=== PATIENT | male | born 1975 | race Caucasian/White ===

== ENCOUNTER 2016-09-26 20:58 | Emergency (ER) | payer BC, OTHER ==
[~2016-09-26] VITALS: Ht 193 cm; Wt 162.1 kg
[~2016-09-26 20:58] MED LIST: ZCRUNK
[2016-09-26 21:00] VITALS: TEMP 37.1; Ht 193 cm; Wt 162.1 kg
[2016-09-26] MEDS ORDERED: SODIUM CHLORIDE 0.9% 500ML 500 ML IV STA (21:10)
[2016-09-26] MEDS ORDERED: BENZONATATE 100MG CAP PO ONE (21:15)
[2016-09-26 21:36] LABS: HEMATOCRIT 46.5 % (42-52); MEAN CELL VOLUME 86.6 fL (80-100); MEAN CORPUSCULAR HEMOGLOBIN 29.6 pg (25-34); MEAN CORPUSCULAR HGB CONC 34.2 g/dl (32-36); MEAN PLATELET VOLUME 10.9 fL (7.4-10.4); PLATELET COUNT 198 K/uL (130-400); RED BLOOD COUNT 5.37 M/uL (4.7-6.1)
[2016-09-26 21:52] LABS: BUN/CREATININE RATIO 17.8 (10-20); CALCIUM 8.4 mg/dl (8.5-10.1)
--- NOTE | 2016-09-26 22:12 | DIAGNOSTIC IMAGING REPORT ---
CHEST 2 VIEWS ROUTINE CLINICAL HISTORY: cough COMPARISON STUDY: 08/27/2014 FINDINGS: The cardiac and mediastinal contours are normal. There is no evidence of focal pulmonary consolidation. There is no evidence of failure. No pleural effusions are visualized.[ There are minor retroxiphoid atelectatic changes. IMPRESSION: No active disease in the chest. Electronically signed by: Jovany Velásquez M.D. 09/26/2016 10:11 PM Dictated Date/Time: 09/26/2016 10:10 PM
[2016-09-26 23:03] LABS: COMPLETE YES; LYMPH ABS # 1.22 K/uL (1.2-3.4); VARIANT LYM ABS # 0.58 K/uL
[2016-09-26 23:08] LABS: INFLUENZA A PCR Neg for Influ A (NEG); INFLUENZA B PCR Neg for Influ B (NEG)
[2016-09-26] MEDS ORDERED: BENZ100C18 PO (23:14)
[2016-09-26] MEDS ORDERED: AMOX875T PO (23:14)
[2016-09-26] MEDS ORDERED: AMOXICILLIN/CLAVULANATE TAB 875 MG TAB PO ONE (23:15)
[2016-09-26 23:22] VITALS: BP 144/87; PULSE 63; O2SAT 97
--- NOTE | 2016-09-27 00:17 | EMERGENCY ROOM VISIT NOTE ---
History Report prepared by Laurent: Dana Mahajan Under the Supervision of: Dr. Jerome Kaye D.O. First contact with patient: 21:03 Chief Complaint: ILLNESS Stated Complaint: COUGH,CONGESTION,SHORT OF BREATH,FEVER History of Present Illness The patient is a 41 year old male who presents to the Emergency Room with complaints of a worsening illness that started one week ago. The patient developed a dry cough last week that has been getting gradually worse. The cough is still dry, but he now experiences back pain with the cough. He states that the cough is the worst when he is lying down at night. The patient is experiencing chest pain and shortness of breath with coughing, but denies either of those symptoms otherwise. The patient is also experiencing post-nasal drip, which started one week ago. He began experiencing a sore throat two days ago and he states that it gets better as the day goes on. Additionally, the patient is experiencing rhinorrhea and mild ear pain. He denies hemoptysis, lower extremity swelling, recent surgeries, recent long trips, any history of blood clots, and any history of cancer. The patient states that he has experienced pneumonia multiple times in the past and he was concerned that he was getting it again. The patient denies any history of asthma or COPD. Source of History: patient Onset: one week ago Position: other (global) Quality: other (illness) Timing: worsening Associated Symptoms: + SOB (with coughing), + back pain (with coughing), + chest pain (with coughing), + sorethroat Note: post-nasal drip, rhinorrhea, mild ear pain, no lower extremity edema, no hemoptysis Review of Systems See HPI for pertinent positives & negatives. A total of 10 systems reviewed and were otherwise negative. Past Medical & Surgical Medical Problems: (1) Pneumonia Surgical Problems: (1) History of adenoidectomy (2) History of tonsillectomy Family History No significant family history Social History Smoking Status: Never Smoker Alcohol Use: none Drug Use: none Marital Status: Occupation Status: employed Current/Historical Medications Scheduled Amoxicillin & Pot Clavulanate (Augmentin 875-125 mg), 875 MG PO BID Benzonatate (Tessalon Perles), 1 CAP PO TID Allergies Coded Allergies: No Known Allergies (Unverified , 08/22/09) Physical Exam Vital Signs Date Time Temp Pulse Resp B/P Pulse Ox O2 Delivery O2 Flow Rate FiO2 09/26/16 23:22 63 18 144/87 97 Room Air 09/26/16 21:00 37.1 78 24 173/103 95 Room Air Physical Exam GENERAL: alert, sitting up in bed, obese, well appearing, well nourished, no acute distress, non-toxic EYE EXAM: normal conjunctiva EARS: TMs clear bilaterally. OROPHARYNX: no exudate, no erythema, lips, buccal mucosa, and tongue normal and mucous membranes are moist NECK: supple, no nuchal rigidity, no adenopathy, non-tender LUNGS: Clear to auscultation. Normal chest wall mechanics HEART: no murmurs, S1 normal and S2 normal ABDOMEN: abdomen soft, non-tender, normo-active bowel sounds, no masses, no rebound or guarding. BACK: Back is symmetrical on inspection and there is no deformity, no midline tenderness, no CVA tenderness. SKIN: no rashes and no bruising UPPER EXTREMITIES: upper extremities are grossly normal. LOWER EXTREMITIES: No pitting edema, calves equal bilaterally. NEURO EXAM: Normal sensorium, cranial nerves II-XII grossly intact, normal speech, no gross weakness of arms, no gross weakness of legs. Medical Decision & Procedures ER Provider Diagnostic Interpretation: Xray results per the radiologist and my interpretation. CHEST 2 VIEWS ROUTINE IMPRESSION: No active disease in the chest. Electronically signed by: Jovany Velásquez M.D. 09/26/2016 10:11 PM Dictated Date/Time: 09/26/2016 10:10 PM Laboratory Results 09/26/16 21:25 Red Blood Count 5.37, Mean Corpuscular Volume 86.6, Mean Corpuscular Hemoglobin 29.6, Mean Corpuscular Hemoglobin Concent 34.2, Mean Platelet Volume 10.9 09/26/16 21:25 Test 09/26/16 21:25 09/26/16 21:32 White Blood Count 3.40 K/uL (4.8-10.8) Red Blood Count 5.37 M/uL (4.7-6.1) Hemoglobin 15.9 g/dL (14.0-18.0) Hematocrit 46.5 % (42-52) Mean Corpuscular Volume 86.6 fL (80-100) Mean Corpuscular Hemoglobin 29.6 pg (25-34) Mean Corpuscular Hemoglobin Concent 34.2 g/dl (32-36) Platelet Count 198 K/uL (130-400) Mean Platelet Volume 10.9 fL (7.4-10.4) RDW Standard Deviation 42.4 fL (36.4-46.3) RDW Coefficient of Variation 13.4 % (11.5-14.5) Neutrophils % (Manual) 38.0 % Lymphocytes % (Manual) 36.0 % Variant Lymphocytes % (manual) 17.0 % Monocytes % (Manual) 8.0 % Eosinophils % (Manual) 1.0 % Neutrophils # (Manual) 1.29 K/uL (1.4-6.5) Total Absolute Neutrophils 1.29 K/uL (1.4-6.5) Lymphocytes # (Manual) 1.22 K/uL (1.2-3.4) Absolute Variant Lymphocytes 0.58 K/uL Total Absolute Lymphocytes 1.80 K/uL (1.2-3.4) Monocytes # (Manual) 0.27 K/uL (0.11-0.59) Eosinophils # (Manual) 0.03 K/uL (0-0.5) Red Blood Cell Morphology Unremarkable Anion Gap 9.0 mmol/L (3-11) Est Creatinine Clear Calc Drug Dose 160.7 ml/min Estimated GFR () 107.9 Estimated GFR (Non- 93.1 BUN/Creatinine Ratio 17.8 (10-20) Calcium Level 8.4 mg/dl (8.5-10.1) Influenza Type A (RT-PCR) Neg for Influ A (NEG) Influenza Type A Antigen Neg for Influ A (NEG) Influenza Type B Antigen Neg for Influ B (NEG) Influenza Type B (RT-PCR) Neg for Influ B (NEG) Laboratory results per my review. Medications Administered Medications (Trade) Dose Ordered Sig/Guillermo Route Start Time Stop Time Status Last Admin Dose Admin Sodium Chloride (Nss 500ml) 500 ml @ 999 mls/hr Q31M STAT IV 09/26/16 21:10 09/26/16 21:40 DC 09/26/16 21:37 999 MLS/HR Benzonatate (Tessalon Perles Cap) 100 mg NOW ONCE PO 09/26/16 21:15 09/26/16 21:16 DC 09/26/16 21:35 100 MG Amoxicillin/ Clavulanate Potassium (Augmentin Tab) 875 mg ONE ONCE PO 09/26/16 23:15 09/26/16 23:16 DC 09/26/16 23:23 875 MG ED Course ED COURSE: Vital signs were reviewed and showed hypertension. The patients medical record was reviewed The above diagnostic studies were performed and reviewed. ED treatments and interventions as stated above. 2104: The patient was evaluated in room A3. A complete history and physical examination was performed. 0: Ordered Sodium Chloride 500 ml @ 999 mls/hr IV 2114: Ordered Benzonatate 100 mg PO 2300: Upon reevaluation, the patient is doing well. I discussed my findings with the patient and he understands and agrees with the treatment plan. Based on the patients age, coexisting illnesses, exam and lab findings the decision to treat as an outpatient was made. The patient remained stable while under my care. The patient appeared well at the time of discharge. 5: Ordered Augmentin Tab 875 mg PO Medical Decision Differential diagnoses includes but is not limited to pneumonia, bronchitis, COPD/Asthma exacerbation, pneumothorax, pulmonary embolism, congestive heart failure, acute coronary syndrome Patient is a 41-year-old male who presents the ER for a cough associated with runny nose and sore throat. He notes that this is been going on for the past week. Patient has had this multiple times in the past. He denies any chest pain or shortness of breath with exception of when he is coughing. He is a low risk for PEs and based on his history of present illness is not pursued any further. Vitals are unremarkable with exception of mild hypertension. Patient was given Tessalon Perles and Augmentin. Tessalon Perles did help with coughing. CBC and BMP were unremarkable. Influenza was negative. Chest x-ray showed no infiltrate. He was treated for a bronchitis as his symptoms have been present for 7-10 days. He was discharged to follow-up with his primary care doctor with Augmentin and Tessalon Perles. Discussed with Pt concerning signs and symptoms to watch out for. Pt was instructed to follow up with their PCP and discussed with the patient their option to return to the ED at anytime for persistent or worsening symptoms. The appropriate anticipatory guidance and out-patient management, including indications for return to the emergency department, were explained at length to the patient and understood. Impression Primary Impression: Bronchitis Additional Impression: Cough Scribe Attestation The scribe's documentation has been prepared under my direction and personally reviewed by me in its entirety. I confirm that the note above accurately reflects all work, treatment, procedures, and medical decision making performed by me. Departure Information Dispostion Home / Self-Care Prescriptions Amoxicillin & Pot Clavulanate (Augmentin 875-125 mg) 1 Tab Tab 875 MG PO BID for 7 Days, TAB Prov: Jerome Kaye, DO 09/26/16 Benzonatate (TESSALON PERLES) 100 Mg Cap 1 CAP PO TID for 10 Days, #30 CAP Prov: Jerome Kaye, DO 09/26/16 Referrals Pancho Duval M.D. (PCP) Forms HOME CARE DOCUMENTATION FORM, IMPORTANT VISIT INFORMATION, WORK / SCHOOL INSTRUCTIONS Patient Instructions ED Bronchitis Abx Tx, My [facility] Additional Instructions Please follow up with your primary care doctor with in the next 24 hours. Any worsening of your symptoms, please return to the ED immediately. This includes fevers persistently greater than 100.4, worsening shortness of breath, chest pain, passing out, or any other concerning signs or symptoms from your stand point. Problem Qualifiers
== END 2016-09-26 23:29 | disposition home or self-care (01) ==
LOC: C.EDB 20:59 → C.EDA 23:29
DX: J40 Bronchitis, not specified as acute or chronic (principal); R05 Cough; Z87.01 Personal history of pneumonia (recurrent); Z90.89 Acquired absence of other organs

== ENCOUNTER → 2016-11-17 | Outpatient (CLI) | payer BC, OTHER ==
--- NOTE | 2016-11-17 13:34 | DIAGNOSTIC IMAGING REPORT ---
AP STANDING VIEW OF BOTH KNEES; 3 VIEWS RIGHT KNEE CLINICAL HISTORY: Chronic right knee pain. FINDINGS: An AP standing view of both knees with crosstable lateral, tunnel, and sunrise views of the right knee are compared to study dated 04/15/2015. The skeletal structures are well mineralized. No fracture is seen. There is mild tricompartmental degenerative joint space narrowing. There are small patellar enthesophytes as well as minimal degenerative beaking of the tibial spine. No osteochondral defect is identified on the tunnel image. There is no joint effusion. Mild lateral patellar subluxation is suggested on the frontal view. This could not be corroborated on the sunrise or tunnel views. Survey images of the left knee on the frontal view show no abnormality. IMPRESSION: 1. No acute bony abnormality is identified in the right knee. 2. Minimal degenerative change as above. 3. Question mild lateral subluxation of the patella on the frontal view. This could not be corroborated on the remaining views. Electronically signed by: Andriy Kate M.D. 11/17/2016 1:32 PM Dictated Date/Time: 11/17/2016 1:30 PM
== END | disposition home or self-care (01) ==
LOC: C.RDSM 13:12
PROVIDERS: ATTEND Physician Assistant
DX: M25.561 Pain in right knee (principal)

== ENCOUNTER → 2017-11-08 | Outpatient (CLI) | payer BC ==
[2017-11-08 12:29] LABS: BASO % 0.5 %; BASO ABS # 0.03 K/uL (0-0.2); EOS % 1.5 %; HEMATOCRIT 44.7 % (42-52); HEMOGLOBIN 14.9 g/dL (14.0-18.0); IG# 0.02 K/uL (0.00-0.02); LYMPH % 35.9 %; LYMPH ABS # 2.33 K/uL (1.2-3.4); MEAN CELL VOLUME 88.2 fL (80-100); MEAN CORPUSCULAR HEMOGLOBIN 29.4 pg (25-34); MEAN CORPUSCULAR HGB CONC 33.3 g/dl (32-36); MEAN PLATELET VOLUME 11.3 fL (7.4-10.4); MONO % 9.9 %; MONO ABS # 0.64 K/uL (0.11-0.59); NEUT % 51.9 %; NEUT ABS # 3.37 K/uL (1.4-6.5); PLATELET COUNT 226 K/uL (130-400); RED CELL DISTRIBUTION WIDTH CV 13.6 % (11.5-14.5); RED CELL DISTRIBUTION WIDTH SD 43.4 fL (36.4-46.3); WHITE BLOOD COUNT 6.49 K/uL (4.8-10.8)
[2017-11-08 13:06] LABS: ALBUMIN 3.8 gm/dl (3.4-5.0); ALT/SGPT 25 U/L (12-78); AST/SGOT 14 U/L (15-37); BLOOD UREA NITROGEN 16 mg/dl (7-18); CARBON DIOXIDE 30 mmol/L (21-32); CHOLESTEROL 207 mg/dl (0-200); CREATININE 0.96 mg/dl (0.60-1.40); GLUCOSE 98 mg/dl (70-99); POTASSIUM 4.2 mmol/L (3.5-5.1); SODIUM 137 mmol/L (136-145)
[2017-11-08 13:15] LABS: ALKALINE PHOSPHATASE 162 U/L (45-117); LDL CHOLESTEROL CALCULATED 147 mg/dl; TOTAL PROTEIN 7.8 gm/dl (6.4-8.2)
== END ==
LOC: C.LABBFT 08:11
PROVIDERS: ATTEND Physician Assistant Medical
DX: E78.5 Hyperlipidemia, unspecified (principal)